=== PATIENT | female | born 1945 | race Caucasian/White ===

== ENCOUNTER 2023-03-13 15:22 | Outpatient (REF) | payer MEDICARE, SELFPAY ==
--- NOTE | ~2023-03-13 | CT_ITS ---
EXAMINATION: CT ABDOMEN AND PELVIS WITHOUT AND WITH CONTRAST CLINICAL INFORMATION: Microscopic hematuria COMPARISON: None available. TECHNIQUE: Noncontrast CT of the abdomen and pelvis is performed followed by split bolus contrast-enhanced images using 85 mL Omnipaque 350 contrast.? Postcontrast imaging is performed during the combined nephrogram and excretion phase. Sagittal and coronal reformatted images were obtained on the technologist's workstation for both the precontrast and postcontrast phases. This CT examination was performed using dose optimization techniques as appropriate, variously including the following: *Automated exposure control *Adjustment of mA and/or kV according to patient size (this includes techniques or standardized protocols for targeted exams where dose is matched to indication/reason for exam; i.e. extremities or head) *Use of iterative reconstruction technique DLP: 1078 mGy-cm FINDINGS: LUNG BASES: There are bibasilar compressive atelectasis. LIVER, GALLBLADDER, AND BILIARY TREE: The liver is normal in size, shape, and attenuation. No focal hepatic lesion or biliary ductal dilatation is present. Multiple stones seen in gallbladder. No evidence of pericholecystic fluid collection. No wall thickening. PANCREAS: Unremarkable. SPLEEN: Unremarkable. ADRENAL GLANDS: There is thickening of the right adrenal gland, measured 1.3 cm. Left adrenal gland is unremarkable. KIDNEYS AND URETERS: There are no renal calculi seen. There is mild fullness of collecting system of left kidney. There is an exophytic simple lower pole 4.6 cm cyst on the left. There are a few very small cortical cysts in the right kidney, too small to characterize with the largest cyst in the upper pole measured 1 cm. Ureters are nondilated. BLADDER: Unremarkable. GASTROINTESTINAL TRACT: There are changes of sigmoid colon diverticulosis without diverticulitis. Appendix is not seen. ABDOMINAL WALL: There is small fat-containing umbilical hernia LYMPH NODES: Unremarkable VASCULAR:: Unremarkable. PELVIC VISCERA: Unremarkable. OSSEUS STRUCTURES: : There are multilevel degenerative changes in lumbar spine more prominent at the level of L5-S1 and lower thoracic spine. . CT/CT urogram IMPRESSION: 1. Cholelithiasis without evidence of cholecystitis. 2. Mild fullness of collecting system of left kidney and bilateral renal cysts. 3. Diverticulosis without diverticulitis. 4. Thickening of the right adrenal gland. 5. Small fat-containing umbilical hernia.
[2023-03-13] MEDS: iohexoL 350 MG/ML 100 ML INFUS..BTL IV (16:04)
[2023-03-14 07:39] LABS: Creatinine POC 0.7 mg/dL (0.5-1.4); GFR POC > 60
== END 2023-03-13 15:23 | disposition home or self-care (01) ==
LOC: HO.CT 15:22
PROVIDERS: Visit Provider Physician Assistant
DX: R31.29 Other microscopic hematuria (principal); Z87.442 Personal history of urinary calculi
CPT/HCPCS: 74178; 82565; Q9967